=== PATIENT | female | born 1955 | race Caucasian/White ===

== ENCOUNTER 2016-08-23 09:54 | Inpatient (IN) | payer MEDICAID ==
[~2016-08-23 09:54] MED LIST: ADVAIR 100-501 EACH IH; ADVAIR 25028 BLISTE1 INH; ALBUTEROL2.5 MG/3 M INH; ALBUTEROL2.5 MG/3 M NEB; ATIVAN0.5 M1 PO; ATIVAN0.5 M1 PO/SL; AUGMENTIN 875-1 EAC2 PO; BROVANA15 MCG/22 AERO NEB; BUPROBAN PO; BUPROPION PO; BUPROPION XL300 M1 PO; CARDIZEM CD120 M1 PO; CEFDINIR300 M1 PO; CITALOPRAM HBR20 M1 PO; CULTURELLE1 EAC1 PO; CYCLOBENZAPRINE10 M1; DULERA 200 MCG/13 G1 INH; FLONASE ALLERG9.9 ML; IPRATROPIU0.2 MG/1 M INH; LASIX80 M1 PO; LEVAQUIN750 M1 PO; MELATONIN3 M4 PO; MIRTAZAPINE30 M2 PO; MORPHINE S100 MG/5 M PO/SL; MUCINEX600 M1 PO; NICODERM CQ1 EAC1 TD; NICOTINE PATCH1 EAC1 TP; NORCO 5-325 TA1 EACH PO; NORVASC5 M2 PO; NYSTATIN100000 UNI SSW; OXYGEN; POTASSIUM CHLO10 ME1 PO; POTASSIUM CHLO10 ME2; POTASSIUM CHLO10 ME2 PO; PREDNISONE10 M1 PO; PRILOSEC20 M1 PO; PROAIR HFA8.5 GM IH; PROMETH-CODEIN 65 ML PO; PROVENTIL HFA6.7 G1 INH; PULMICORT0.5 MG/22 AERO NEB; SEROQUEL; SEROQUEL XR50 MG/TAB PO; SEROQUEL100 M2 PO; SPIRIVA18 MC1 IH; SPIRIVA18 MC1 INH; SYMBICORT 160-1 PUFF INH; TESSALON PERLE100 M1 PO; TRAMADOL HCL50 M2 PO; TRAZODONE HCL100 M1 PO; TYLENOL325 M2 PO; ULTRAM50 M1 PO; WELLBUTRIN XL150 M1 PO; ZANTAC150 M1 PO; ZANTAC25 MG/1 ML PO; [UNRECOGNIZED DRUG - CODE] PO
[2016-08-23] MEDS ORDERED: LORAZEPAM2 MG/1 M4 PO/SL (10:03)
[2016-08-23] MEDS ORDERED: DILTIAZEM HCL60 M1 PO (10:05)
[2016-08-23] MEDS ORDERED: MUCINEX600 M1 PO (10:07)
[2016-08-23] MEDS ORDERED: ATIVAN0.5 M1 PO (10:07)
[2016-08-23] MEDS ORDERED: ZOFRAN ODT4 MG SL (10:07)
[2016-08-23] MEDS ORDERED: IPRATROPIU0.2 MG/1 M NEB (10:07)
[2016-08-23] MEDS ORDERED: POTASSIUM CHLO10 ME3 PO (10:08)
[2016-08-23] MEDS ORDERED: ULTRAM50 M1 PO (10:08)
[2016-08-23 10:27] LABS: ARTERIAL BLD GAS O2 SATURATION 95 % (95-98); ARTERIAL PO2 80 mmHg (70-100); BICARBONATE 37 mmol/L (21-28); BLOOD GAS BASE EXCESS 9 mM/L (-/+3); PH 7.31 Units (7.35-7.45)
[2016-08-23 10:30] LABS: ABG CO2 ARTERIAL 40 mmol/L (21-27); ARTERIAL BLOOD GAS PCO2 75 mmHg (32-45)
[2016-08-23] MEDS ORDERED: VIBRAMYCIN100 M1 PO (10:51)
[2016-08-23] MEDS ORDERED: DULERA 200 MCG/13 G1 INH (10:51)
[2016-08-23] MEDS ORDERED: HYDROCODON-ACE1 EA16 PO (10:52)
[2016-08-23] MEDS ORDERED: PRENATAL-U CAPS1 CAP PO (10:56)
[2016-08-23] MEDS ORDERED: PULMICORT0.5 MG/22 INH (10:57)
[2016-08-23] MEDS ORDERED: SPIRIVA18 MC1 INH (10:57)
[2016-08-23] MEDS ORDERED: PREDNISONE10 M1 PO (11:37)
[2016-08-23 11:46] LABS: BASO % 0.1 % (0-2); EOS % 1.1 % (0-7); EOSINOPHIL ABSOLUTE COUNT 0.1 tho/cmm (0.0-0.7); HCT-HEMATOCRIT 37.7 % (34.0-49.0); HGB-HEMOGLOBIN 11.6 gm/dl (12.0-15.5); IMMATURE GRANULOCYTES ABSOLUTE 0.02 tho/cmm (0-0.03); IMMATURE GRANULOCYTES PERCENT 0.2 % (0-0.3); LYMPH % 12.6 % (20-45); LYMPH ABSOLUTE COUNT 1.1 tho/cmm (0.8-4.5); MCH (MEAN CORPUSCULAR HGB) 26.4 pg (28.0-32.0); MCHC MEAN CORPUSCULAR HGB CONC 30.8 % (32.0-36.0); MCV (MEAN CELL VOLUME) 85.7 fl (82.0-96.0); MEAN PLATELET VOLUME 11.1 cmc (9.4-12.4); MONO % 1.9 % (0-12); MONOCYTE ABSOLUTE COUNT 0.2 tho/cmm (0.0-1.2); NEUTROPHIL ABSOLUTE COUNT 7.4 tho/cmm (1.6-8.0); NEUTROPHIL-AUTOMATED 7.4 tho/cmm (1.6-8.0); NEUTROPHILS % 84.1 % (40-80); PLATELET COUNT 224 tho/cmm (150-450); RED CELL DISTRIBUTION WIDTH 16.7 % (12.4-16.4); WHITE BLOOD COUNT 8.8 tho/cmm (4.0-10.0)
[2016-08-23 12:01] LABS: ALB/GLOB RATIO 0.8 (0.8-2.0); ALBUMIN 3.2 g/dl (3.5-5.0); ALKALINE PHOSPHATASE 158 U/L (33-138); ALT/SGPT 27 U/L (12-78); ANION GAP 5 mmol/L (0-20); AST/SGOT 22 U/L (10-40); BILIRUBIN,TOTAL 0.3 mg/dl (0-1.5); BLOOD UREA NITROGEN 9 mg/dl (6-24); CARBON DIOXIDE-VENOUS 39 mmol/L (22-32); CHLORIDE 103 mmol/l (96-110); GLUCOSE 169 mg/dL (70-110); POTASSIUM 3.4 mmol/L (3.7-5.1); SODIUM 144 mmol/L (135-145); eGFR VALUE FOR BLACK >90 mL/Min
[2016-08-23 12:03] LABS: URINE BILIRUBIN NEGATIVE (NEG); URINE BLOOD NEGATIVE (NEG); URINE COLOR PALE YELLOW; URINE GLUCOSE (UA) NEGATIVE (NEG); URINE KETONE NEGATIVE (NEG); URINE LEUKOCYTE ESTERASE NEGATIVE (NEG); URINE NITRITE NEGATIVE (NEG); URINE PROTEIN NEGATIVE (NEG)
[2016-08-23 12:04] LABS: URINE APPEARANCE CLEAR
[2016-08-23 12:19] LABS: PROCALCITONIN <0.05 ng/ml (0.05-0.09)
[2016-08-23 13:21] LABS: ARTERIAL BLD GAS O2 SATURATION 95 % (95-98); ARTERIAL BLOOD GAS PCO2 67 mmHg (32-45); ARTERIAL PO2 78 mmHg (70-100); BICARBONATE 38 mmol/L (21-28); BLOOD GAS BASE EXCESS 11 mM/L (-/+3); PH 7.37 Units (7.35-7.45)
[2016-08-23 13:23] LABS: ABG CO2 ARTERIAL 40 mmol/L (21-27)
[2016-08-23 15:54] LABS: THEOPHYLLINE 3.9 ug/ml (10-20)
[2016-08-24 05:00] LABS: HCT-HEMATOCRIT 34.5 % (34.0-49.0); HGB-HEMOGLOBIN 10.5 gm/dl (12.0-15.5); IMMATURE GRANULOCYTES ABSOLUTE 0.02 tho/cmm (0-0.03); IMMATURE GRANULOCYTES PERCENT 0.3 % (0-0.3); LYMPH % 9.7 % (20-45); LYMPH ABSOLUTE COUNT 0.6 tho/cmm (0.8-4.5); MCH (MEAN CORPUSCULAR HGB) 25.8 pg (28.0-32.0); MCHC MEAN CORPUSCULAR HGB CONC 30.4 % (32.0-36.0); MCV (MEAN CELL VOLUME) 84.8 fl (82.0-96.0); MEAN PLATELET VOLUME 11.3 cmc (9.4-12.4); MONO % 1.3 % (0-12); MONOCYTE ABSOLUTE COUNT 0.1 tho/cmm (0.0-1.2); NEUTROPHIL ABSOLUTE COUNT 5.6 tho/cmm (1.6-8.0); NEUTROPHIL-AUTOMATED 5.6 tho/cmm (1.6-8.0); NEUTROPHILS % 88.7 % (40-80); PLATELET COUNT 263 tho/cmm (150-450); RED BLOOD COUNT 4.07 mil/cmm (4.00-5.20); RED CELL DISTRIBUTION WIDTH 16.2 % (12.4-16.4); WHITE BLOOD COUNT 6.4 tho/cmm (4.0-10.0)
[2016-08-24 05:05] LABS: ANION GAP 14 mmol/L (0-20); BLOOD UREA NITROGEN 18 mg/dl (6-24); CALCIUM 8.3 mg/dl (8.5-10.5); CARBON DIOXIDE-VENOUS 37 mmol/L (22-32); CHLORIDE 93 mmol/l (96-110); POTASSIUM 3.5 mmol/L (3.7-5.1); SODIUM 140 mmol/L (135-145); eGFR VALUE FOR BLACK 60 mL/Min
[2016-08-24 05:28] LABS: CREATININE 1.13 mg/dl (0.50-1.10); GLUCOSE 352 mg/dL (70-110)
[2016-08-24] MEDS ORDERED: DELTASONE20 MG PO (13:45)
[2016-08-24] MEDS ORDERED: ZITHROMAX500 M2 PO (13:46)
[2016-11-04] MEDS ORDERED: TYLENOL325 M2 PO ×2 (17:38→17:39)
[2016-11-04] MEDS ORDERED: ALBUTEROL0.63 MG/1 INH (17:39)
[2016-11-04] MEDS ORDERED: TESSALON PERLE100 M1 PO (17:40)
[2016-11-04] MEDS ORDERED: CELEXA20 M2 PO (17:40)
[2016-11-04] MEDS ORDERED: CARDIZEM30 M1 PO (17:41)
[2016-11-04] MEDS ORDERED: DULERA 200 MCG/13 G1 INH (17:41)
[2016-11-04] MEDS ORDERED: LASIX80 M1 PO (17:45)
[2016-11-04] MEDS ORDERED: FLONASE ALLERG9.9 ML INH (17:45)
[2016-11-04] MEDS ORDERED: IPRATROPIUM BRO30 M1 INH (17:46)
[2016-11-04] MEDS ORDERED: ATIVAN0.5 M1 PO (17:47)
[2016-11-04] MEDS ORDERED: LORAZEPAM I2 MG/1 ML SL (17:47)
[2016-11-04] MEDS ORDERED: MORPHINE S20 MG/1 M1 PO (17:48)
[2016-11-04] MEDS ORDERED: MUCINEX600 M1 PO (17:49)
[2016-11-04] MEDS ORDERED: NYSTATIN100000 UNI SSW (17:49)
[2016-11-04] MEDS ORDERED: OMEPRAZOLE20 M4 PO (17:51)
[2016-11-04] MEDS ORDERED: OXYGEN (17:51)
[2016-11-04] MEDS ORDERED: PULMICORT0.5 MG/22 (17:52)
[2016-11-04] MEDS ORDERED: ZOFRAN4 M2 PO (17:52)
[2016-11-04] MEDS ORDERED: POTASSIUM CHLO10 ME2 PO (17:52)
[2016-11-04] MEDS ORDERED: [UNRECOGNIZED DRUG - CODE] PO (17:53)
[2016-11-04] MEDS ORDERED: ULTRAM50 M1 PO (17:53)
[2016-11-04] MEDS ORDERED: SEROQUEL100 M2 PO (17:53)
[2016-11-04] MEDS ORDERED: SPIRIVA18 MC1 INH (17:53)
[2016-11-06] MEDS ORDERED: BACITRAYCIN PLU28 GM TOP (14:04)
[2016-11-06] MEDS ORDERED: PREDNISONE10 M1 PO (16:36)
== END 2016-08-24 16:45 | disposition hospice, home (50) | DRG 189 ==
LOC: EDMED 09:54 → PCUB 16:30
PROVIDERS: Emergency Medicine; ADMIT Internal Medicine
PROC: 02HV33Z Insertion of Infusion Device into Superior Vena Cava, Percutaneous Approach (ICD-10-PCS; principal; 2016-08-23)
PROC: B548ZZA Ultrasonography of Superior Vena Cava, Guidance (ICD-10-PCS; 2016-08-23)
PROC: 5A09357 Assistance with Respiratory Ventilation, Less than 24 Consecutive Hours, Continuous Positive Airway Pressure (ICD-10-PCS; 2016-08-23)
DX: J96.22 Acute and chronic respiratory failure with hypercapnia (principal); I11.0 Hypertensive heart disease with heart failure; I50.30 Unspecified diastolic (congestive) heart failure; Z99.81 Dependence on supplemental oxygen; J44.1 Chronic obstructive pulmonary disease with (acute) exacerbation; J96.21 Acute and chronic respiratory failure with hypoxia; T38.0X5A Adverse effect of glucocorticoids and synthetic analogues, initial encounter; R73.9 Hyperglycemia, unspecified; E87.6 Hypokalemia; F41.9 Anxiety disorder, unspecified; F32.9 Major depressive disorder, single episode, unspecified; G47.33 Obstructive sleep apnea (adult) (pediatric); K27.7 Chronic peptic ulcer, site unspecified, without hemorrhage or perforation; K21.9 Gastro-esophageal reflux disease without esophagitis; Z91.81 History of falling; Z91.19 Patient's noncompliance with other medical treatment and regimen; Z87.891 Personal history of nicotine dependence; Z79.51 Long term (current) use of inhaled steroids; Z79.899 Other long term (current) drug therapy
CPT/HCPCS: C1751; J0456; J0696; J1650; J1956; J2270; J2930; J7030; J7050; P9612